=== PATIENT | female | born 1960 | race Caucasian/White ===

== ENCOUNTER → 2019-02-08 10:39 | Outpatient (CLI) | payer OTHER, SELFPAY ==
[2019-01-18 15:11] VITALS: BMI 36.5
--- NOTE | 2019-02-08 10:44 | ECHOD_ITS ---
Reason For Study: CONGESTIVE HEART FAILURE Procedure This was a 2D Doppler, Color Flow transthoracic echocardiogram. The study was technically difficult. Due to body habitus. Exam performed in department. Left Ventricle Normal LV size. Mild segmental systolic dysfunction (see wall motion). The estimated ejection fraction is 40 %. Transmitral doppler flow suggestive of impaired relaxation of left ventricle. Anterio-Basal: Hypokinetic. Infero-Basal: Hypokinetic. Basal inferoseptal: Hypokinetic. Mid- Anterior : Hypokinetic. Mid-Inferior: Hypokinetic. Mid-anteroseptal : Hypokinetic. Anterior [place] : Hypokinetic. Inferior [place] : Hypokinetic. Lateral [place] : Hypokinetic. Right Ventricle Normal RV size. Normal systolic function. Atria The left atrium is mildly enlarged. Normal right atrium. No doppler evidence for ASD. Mitral Valve There is no mitral annular calcification. Normal mitral valve. Mild (1+) mitral valve insufficiency. Tricuspid Valve Normal tricuspid valve. Trivial tricuspid valve insufficiency. Unable to estimate RV systolic pressure/pulmonary artery pressure due to technically difficult study. Aortic Valve Trisinus/trileaflet aortic valve. Mild focal aortic valve calcification. Pulmonic Valve The pulmonic valve is not well visualized. Great Vessels Normal sized aortic root. Pericardium/Pleural No pericardial effusion. MMode/2D Measurements & Calculations LVIDd: 4.9 cm IVSd: 1.00 cm Ao root diam: 2.9 cm LVIDs: 4.2 cm LVPWd: 1.0 cm RVDd: 3.0 cm FS: 14.6 % LAV(MOD-bp): 54.2 ml LA A4 area: 14.8 cm2 LAV(MOD-bp) Indexed: 27.4 ml/m2 LAV(MOD-sp2): 63.1 ml LAV(MOD-sp4): 42.7 ml Time Measurements MV dec time: 0.25 sec Doppler Measurements & Calculations MV E max kirit: 58.0 cm/sec Lat Peak E' Kirit: 5.2 cm/sec Med Peak E' Kirit: 5.0 cm/sec MV A max kirit: 110.9 cm/sec E/E' lat: 11.1 E/E' med: 11.5 MV E/A: 0.52 Ao V2 max: 112.1 cm/sec LV V1 max: 82.8 cm/sec PA V2 max: 81.1 cm/sec Ao max P.0 mmHg LV V1 max P.7 mmHg Interpretation Summary The study was technically difficult. Mild segmental systolic dysfunction (see wall motion). The estimated ejection fraction is 40 %. The left atrium is mildly enlarged. Mild (1+) mitral valve insufficiency. Trivial tricuspid valve insufficiency. Mild focal aortic valve calcification. Unable to estimate RV systolic pressure/pulmonary artery pressure due to technically difficult study. Transmitral doppler flow suggestive of impaired relaxation of left ventricle Ordering Physician: Champ Daniels Referring Physician: OTD Performed By: Suzanne Carmona, KWESI, RVT
== END ==
LOC: CVS 10:44
PROVIDERS: Referring Provider Internal Medicine Cardiovascular Disease; Visit Provider Internal Medicine Cardiovascular Disease
DX: I50.22 Chronic systolic (congestive) heart failure (principal); Z95.5 Presence of coronary angioplasty implant and graft; I25.10 Atherosclerotic heart disease of native coronary artery without angina pectoris; I25.5 Ischemic cardiomyopathy; I38 Endocarditis, valve unspecified
CPT/HCPCS: 93306

== ENCOUNTER → 2023-05-07 | Outpatient (CLI) | payer OTHER, SELFPAY ==
[2023-05-07 18:07] LABS: Absolute Lymphocyte Count 0.68 X10^3/uL (0.83-4.51); Absolute Neutrophil Count 6.2 X10^3/uL (2.0-7.7); Basophil# 0.05 X10^3/uL; Basophil% 0.6 % (0-1); Eosinophil# 0.13 X10^3/uL; Eosinophils% 1.7 % (0-5); Hematocrit 49.3 % (37-47); Hemoglobin 14.3 g/dL (12.0-15.0); Lymphocyte # 0.68 X10^3/ul (0.83-4.51); Lymphocyte % 8.7 % (19-41); Mean Corpuscular Hgb 28.7 pg (27.0-32.0); Monocyte# 0.66 X10^3/uL; Monocyte% 8.5 % (0-10); NRBC Flagged by Analyzer 0 % (0-5); Neutrophil # 6.22 X10^3/uL (2.7-7.7); Platelet Count 149 K/mm3 (150-450); RBC Distribution Width CV 17.9 % (11.6-14.6); Red Blood Count 4.98 M/mm3 (4.2-5.4); White Blood Count 7.8 K/mm3 (4.4-11.0)
[2023-05-07 18:28] LABS: Vitamin D,25 Hydroxy 42.1 ng/mL
[2023-05-07 18:34] LABS: ALB/GLOB Ratio 0.9 RATIO (0.9-2.4); AST(SGOT) 26 U/L (15-37); Alanine Aminotransfer ALT/SGPT 24 U/L (13-56); Albumin, Serum 3.1 g/dL (3.2-5.0); Alkaline Phosphatase 194 U/L (45-117); Anion Gap 5 (5-15); BUN 32 mg/dL (7-18); BUN/Creat Ratio 23.5 RATIO (10-20); Calcium,Total 8.8 mg/dL (8.5-10.1); Chloride 98 mmol/L (98-107); Cholesterol 90 mg/dL (200); Creatinine, Serum 1.36 mg/dL (0.55-1.02); EST Glomerular Filtration Rate 42 mL/min (>60); Est Glom Filt Rate - Afr Amer 51 mL/min (>60); Globulin 3.3 g/dL (2.2-4.2); Glucose 127 mg/dL (74-106); High Density Lipoprotein 33 mg/dL; Potassium 4.2 mmol/L (3.5-5.1); Protein, Total 6.4 g/dL (6.4-8.2); Sodium Level 142 mmol/L (136-145); Thyroid Stim Hormone (TSH) 5.31 uIU/mL (0.358-3.74); Triglycerides 91 mg/dL; Very Low Density Lipoprotein 18 mg/dL (5-40)
[2023-05-07 18:37] LABS: Hemoglobin A1c 6.5 % (3.8-5.6)
== END | disposition home or self-care (01) ==
LOC: MTLAB 16:48
PROVIDERS: PCP Family Medicine; Visit Provider Family Medicine
DX: E11.9 Type 2 diabetes mellitus without complications (principal); R41.0 Disorientation, unspecified
CPT/HCPCS: 36415; 80053; 80061; 82306; 83036; 84443; 85025

== ENCOUNTER → 2023-05-19 | Outpatient (CLI) | payer OTHER, SELFPAY ==
--- NOTE | 2023-05-19 14:33 | US_ITS ---
STUDY: ULTRASOUND BREAST - RIGHT REASON FOR EXAM: Female, 62 years old. Diffuse bilateral skin thickening and orange peel appearance. TECHNIQUE: Axial and longitudinal images of the RIGHT breast were performed with a high resolution ultrasound transducer. # OF IMAGES: 93 COMPARISON: Comparison is made with prior mammogram done earlier in the day. FINDINGS: RIGHT Breast: Skin thickening. Diffuse edematous changes seen in the breast. No solid or cystic mass lesion is seen. IMPRESSION: Diffuse skin thickening and edematous changes within the breast. No focal abnormality is seen. ASSESSMENT CATEGORY: BIRADS Category 2: Benign. A letter regarding these results will be sent to the patient by the facility within 30 days. Electronically Signed: Quique Padilla MD at 8:14 EDT ,
--- NOTE | 2023-05-19 14:34 | BI_ITS ---
MAMMOGRAPHY - BILATERAL DIAGNOSTIC REASON FOR EXAM: Female, 62 years old. Bilateral breast swelling and orange peel appearance. Swelling of the lower extremities. History of CHF. PERTINENT HISTORY: Sister with breast cancer. TECHNIQUE: Digital bilateral breast marcus (3D mammographic acquisition) in the CC and MLO projections. 2-D mediolateral oblique (MLO) and craniocaudad (CC) views of both breasts were obtained. CAD: Full Field Digital Mammography with Computer Added Detection was performed. COMPARISON: Comparison is made with prior outside examination dated April 30, 2018. FINDINGS: Breast Composition: The breasts are heterogeneously dense, which may obscure small masses. There is a 11.2 mm x 12.8 mm irregular nodular density in the deep upper lateral aspect of the left breast. Correlation with ultrasound of both breasts is recommended for further evaluation. There is evidence of diffuse bilateral skin thickening. The amount of fibroglandular tissue as increased as compared to prior study. No other significant abnormalities are identified. BI/DIAG MAMM W/CAD, BILAT IMPRESSION: Diffuse bilateral skin thickening with increased glandular tissue in both breasts with the a 11.2 mm x 12.8 mm irregular nodular density in the deep upper lateral aspect of the left breast. Correlation with ultrasound of both breasts is recommended for further evaluation. ASSESSMENT CATEGORY: BIRADS Category 0: Incomplete. Need additional imaging evaluation. A letter regarding these results will be sent to the patient by the facility within 30 days. Approximately 10% of breast cancers are not detected by mammography. A normal mammogram should not delay biopsy of a clinically suspicious abnormality. Electronically Signed: Quique Padilla MD at 8:12 EDT ,
== END | disposition home or self-care (01) ==
LOC: OPUS 14:30
PROVIDERS: PCP Family Medicine; Referring Provider Family Medicine; Visit Provider Family Medicine
DX: N63.21 Unspecified lump in the left breast, upper outer quadrant (principal); Z80.3 Family history of malignant neoplasm of breast
CPT/HCPCS: 76642; 77062; 77066; G0279

== ENCOUNTER → 2023-06-03 | Outpatient (CLI) | payer OTHER, SELFPAY ==
--- NOTE | 2023-06-03 13:59 | ART_ITS ---
Reason For Study: other symptoms involving the circulatroy system Procedure A bilateral lower extremity continuous wave Doppler with analog waveform analysis and ankle brachial indexes. Left Segmental Pressures Left brachial= 163mmHg. Left posterior tibial artery = 137mmHg. Left dorsalis pedis artery = 130mmHg. Left digit = 166 mmHg. The left dorsalis pedis waveforms are biphasic. The left posterior tibial artery waveforms are biphasic. Right Segmental Pressures Right brachial= 179mmHg. Right posterior tibial artery = 164mmHg. Right dorsalis pedis artery = 143mmHg. Right digit = 155 mmHg. The right dorsalis pedis waveforms are biphasic. The right posterior tibial artery waveforms are biphasic. Indices The right ankle brachial index by the posterior tibial artery is .92. The right ankle brachial index by the dorsalis pedis is .8. The right digital-brachial index is .87. The left ankle brachial index by the posterior tibial artery is .77. The left ankle brachial index by the dorsalis pedis is .73. The left digital-brachial index is .93. VL/Ankle Brachial Index Interpretation Summary Biphasic Doppler waveforms are noted at ankle level bilaterally. Pulse-volume r ecordings appear diminished at ankle and digital level bilaterally. The resting right ankle-brac hial index is minimally diminished. The resting left ankle-brachial index is moderately dimin ished. Digital- brachial indices are normal bilaterally. 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 Art erial flow appears relatively normal at digital level bilaterally. Ordering Physician: Aline Childress Performed By: John Morrow RVT
== END | disposition home or self-care (01) ==
LOC: CVS 13:59
PROVIDERS: PCP Family Medicine; Referring Provider Family Medicine; Visit Provider Family Medicine
DX: R09.89 Other specified symptoms and signs involving the circulatory and respiratory systems (principal)
CPT/HCPCS: 93922

== ENCOUNTER 2023-06-17 12:45 | Outpatient (RCR) | payer OTHER, SELFPAY ==
[2023-06-10 13:26] VITALS: BP 134/71; PULSE 72; RESP 18; TEMP 35.9; O2SAT 93; BMI 45.8
--- NOTE | 2023-06-10 14:38 | PCM.WC.HP ---
History of Present Illness Date of Service: 06/10/23 Chief Complaint: Bilateral lower extremity ulcerations History of Wound: This is a 62-year-old morbidly obese diabetic female who presents with ulcerations in both lower extremities. The patient is morbidly obese with a BMI of 45.8. She suffers from chronic obstructive pulmonary disease and other pre-existing medical problems which limit her mobility. The patient claims to sleep on a relatively flat surface, sleeping each night on the couch. However, she spends most of each day in an idle sitting position. She is not very active. She is on 4 L of oxygen by nasal cannula. She developed blisters in both lower extremities approximately 1 month ago, which subsequently burst, resulting in open ulcerations bilaterally. The patient denies a history of lower extremity thrombophlebitis. 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 right lower leg with fat layer exposed Non-rheumatic mitral regurgitation Nonrheumatic tricuspid valve regurgitation Other and unspecified hyperlipidemia Peripheral arterial occlusive disease Poor circulation Presence of stent in coronary artery (~12/30/16) Swelling of left lower extremity Swelling of right lower extremity Tobacco abuse Tobacco abuse Tobacco abuse counseling Type 2 diabetes mellitus Valvular heart disease Home Medications aspirin 81 mg tablet,delayed release (Adult Low Dose Aspirin) 81 mg PO DAILY 01/18/19 [History Last Taken Unknown] atorvastatin 40 mg tablet 40 mg PO DAILY #90 tabs 04/26/19 [Rx Last Taken Unknown] albuterol sulfate 90 mcg/actuation aerosol inhaler 2 puff inhalation Q4H PRN Wheezing/Shortness of breath #18 grams 11/04/19 [Rx Last Taken Unknown] carvedilol 6.25 mg tablet 6.25 mg PO BID #180 tabs 11/04/19 [Rx Last Taken Unknown] folic acid 1 mg tablet 1 mg PO DAILY #90 tabs 11/04/19 [Rx Last Taken Unknown] nitroglycerin 0.4 mg sublingual tablet 0.4 mg sublingual Q5-15M PRN chest pain #25 tabs 11/04/19 [Rx Last Taken Unknown] aflibercept 2 mg/0.05 mL intravitreal solution for injection (Eylea) 2 mg intravitreal Q4W 09/17/21 [History Last Taken Unknown] albuterol sulfate 2.5 mg/3 mL (0.083 %) solution for nebulization 2.5 mg inhalation Q4H 09/17/21 [History Last Taken Unknown] docusate sodium 100 mg capsule 100 mg PO BID 09/17/21 [History Last Taken Unknown] furosemide 40 mg tablet 40 mg PO DAILY 09/17/21 [History Last Taken Unknown] insulin aspart U-100 100 unit/mL (3 mL) subcutaneous pen (Novolog FlexPen U-100 Insulin aspart) 15 unit subcut TID 09/17/21 [History Last Taken Unknown] metolazone 2.5 mg tablet 2.5 mg PO DAILY 09/17/21 [History Last Taken Unknown] Lactobacillus rhamnosus GG 15 billion cell sprinkle capsule (Culturelle) 1 cap PO DAILY 09/18/21 [History Last Taken Unknown] acetaminophen 325 mg tablet 650 mg PO Q4H 02/11/22 [History Last Taken Unknown] fluticasone fur. 100 mcg-umeclid 62.5 mcg-vilant 25 mcg inhalat.powder (Trelegy Ellipta) 1 inh inhalation DAILY 02/11/22 [History Last Taken Unknown] insulin glargine 100 unit/mL (3 mL) subcutaneous pen (Lantus Solostar U-100 Insulin) 45 unit subcut DAILY 02/11/22 [History Last Taken Unknown] benzonatate 100 mg capsule 100 mg PO TID 05/26/23 [History Last Taken Unknown] bupropion HCl 150 mg tablet,12 hr sustained-release (Wellbutrin SR) 150 mg PO DAILY 05/26/23 [History Last Taken Unknown] fluticasone fur. 100 mcg-umeclid 62.5 mcg-vilant 25 mcg inhalat.powder (Trelegy Ellipta) 1 inh inhalation DAILY 05/26/23 [History Last Taken Unknown] alprazolam 0.25 mg tablet (Xanax) 0.25 mg PO DAILY 06/10/23 [History Last Taken Unknown] Allergy/AdvReac Type Severity Reaction Status Date / Time No Known Allergies Allergy Verified 05/26/23 13:32 Family History Sister Breast cancer Surgical History History of cholecystectomy History of lung biopsy Presence of coronary angioplasty implant and graft (~12/30/16) Social History Smoking Status: Current every day smoker alcohol intake: former substance use type: does not use caffeine: Yes Type: coffee Number of servings: 2 Vital Signs Vital Signs Vital Signs: 06/10/23 13:26 Temperature 96.6 F L Temperature Source Temporal Pulse Rate 72 Respiratory Rate 18 Blood Pressure 134/71 H Blood Pressure Mean 92 Blood Pressure Source Monitor Blood Pressure Position Sitting Blood Pressure Location Left Arm Pulse Ox 93 Oxygen Delivery Method Nasal Cannula Oxygen Flow Rate (L/min) 5 Weight Weight: 259 lb Body Mass Index (BMI) 45.8 Physical Exam Const alert, oriented x3, no apparent distress and well nourished Constitutional Narrative: The patient is morbidly obese. Her BMI is 45.8. A nasal cannula is in place, upon which the patient is dependent. The patient's torso is obese. General Appearance: cooperative, well developed and ill appearing Orientation / Consciousness: awake, oriented to person, oriented to place and oriented to time HEENT normocephalic and head/scalp atraumatic Head and Scalp: normal to inspection, normocephalic and atraumatic External Ear: external ears normal Eyes PERRL and EOMs intact bilaterally General Eye: normal appearance of both eyes Resp normal air movement, no retractions and no use of accessory muscles Resp Narrative: While the patient does not demonstrate respiratory distress, respirations appear to require some extra effort. Effort and Inspection: able to speak in complete sentences Extremity no calf tenderness General Extremity: Negative for clubbing or cyanosis Skin Wound Narrative: Multiple ulcerations are noted in the patient's lower extremities bilaterally. There is an ulceration on the left medial calf. An ulceration is noted on the left posterior calf. An ulceration is noted on the right pretibial surface. There is also an ulceration on the right posterior calf. The ulcerations demonstrate a large amount of bioburden and nonviable tissue, as well as debris and pet hairs. A rather diffuse erythema is noted in the gaiter areas bilaterally, which appears to be inflammatory rather than cellulitic. Mild swelling and edema are noted bilaterally. Neuro oriented x3, CN's II-XII intact bilaterally and moves all extremities Psych Appearance: grossly normal and appropriate Attitude: calm Activity / Motor Behavior: appropriate eye contact Speech: normal speech Mood & Affect: euthymic mood Thought Process: normal thought process Thought Content: normal thought content Attention / Concentration: attention grossly intact Debridement Note Debridement Note Wound debrided: Left medial calf Laterality: Left Type of Debridement: Excisional debridement Anesthesia Used: 5% Lidocaine Gel Depth: Down to and including healthy tissue and in the subcutaneous layer Percentage of wound debrided: 100 Instrument Used: 5mm curette Tissue Removed: Bioburden, necrotic tissue, pet hairs, and debris Severity: Fat Layer Exposed Bleeding Controlled with: Compression and gauze Patient tolerated procedure: Patient tolerated procedure well Debridement Free Text: Debris and pet hairs were noted to be embedded within the ulceration. Post-Debridement Measurements and Additional Note: Post-Debridement Measurements/Treatment - Nurse 1 - General Ulcer Assessment Start: 06/10/23 13:25 Freq: Status: Active Protocol: [email or web address] Activity Type Activity Date Activity User E-sign Co-sign Detail Recorded Client Recorded Date Recorded By Document 06/10/23 13:26 KW [id number] 06/10/23 13:53 KW Edit Result 06/10/23 13:26 KW (1) [id number] 06/10/23 14:01 KW (1) Weight => 259 lb Weight in Pounds => 259.0 lbs Body Mass Index (BMI) => 45.8 BMI Classification => Obese BSA - Omar => 2.16 06/10/23 13:26 - Today's Visit Information Type of service Initial Visit Arrival Mode Wheelchair Accompanied by Patient Identification Verified (Name & Yes ) Patient Requires Transmission-Based Yes Precautions Safety Precautions Fall Prevention Finger Stick Blood Sugar(mg/dl) (if 177 indicated): Blood Sugar Stated by Patient Height and Weight Height 5 ft 3 in Weight 259 lb Weight in Pounds 259.0 lbs Weight Measurement Method Estimated by Patient Body Mass Index (BMI) 45.8 BMI Classification Obese BSA - Omar 2.16 Vital Signs Temperature (97.8 F-99.1 F) 96.6 F L Temperature Source Temporal Pulse Rate (60-100) 72 Pulse Location Monitor Respiratory Rate (12-18) 18 Respiratory rate source Observation Pulse Oximetry 93 Oxygen Delivery Method Nasal Cannula O2 L/MIN 5 Blood Pressure (90/60-120/80) 134/71 H Blood Pressure Mean 92 Source Monitor Position Sitting Blood Pressure Location Left Arm History Since Last Visit- (Skip if this is Patient's initial visit) Left Footwear Regular Shoe Right Footwear Regular Shoe Pain Scale: 0-10 Numeric Is Patient Pain Free? No BLE -Description Burning -Intensity 10 -Radiation Location up legs -Duration (hours) Chronic -Pain Behavior Restlessness -Alleviating Factors/Interventions Medication, Distraction Lower Extremity Assessment/ Foot Assessment/ Toe Nail Assessment Right -Posterior Tibial Palpable No -Posterior Tibial Doppler Multiphasic -Dorsalis Pedis Palpable No -Dorsalis Pedis Doppler Multiphasic -Extremity Color Hemosiderin -Hair Growth on Legs No -Hair Growth on Toes No -Temperature of Extremity Cool -Capillary Refill Greater than 3 Seconds -Dependent Rubor Yes -Blanched when Elevated No -Lipodermatosclerosis No -Other Deformity No -Prior Foot Ulcer No -Charcot Joint No -Prior Amputation No -Thick Yes -Discolored Yes -Deformed Yes -Improper Length & Hygeine No Left -Posterior Tibial Palpable No -Posterior Tibial Doppler Multiphasic -Dorsalis Pedis Palpable No -Dorsalis Pedis Doppler Multiphasic -Extremity Color Hemosiderin -Hair Growth on Legs No -Hair Growth on Toes No -Temperature of Extremity Cool -Capillary Refill Greater than 3 Seconds -Dependent Rubor Yes -Blanched when Elevated No -Lipodermatosclerosis No -Other Deformity No -Prior Foot Ulcer No -Charcot Joint No -Prior Amputation No -Thick Yes -Discolored Yes -Deformed Yes -Improper Length & Hygeine No Communication Assessment Preferred language Cambodian Able to Read Yes Able to Write No Communication Tools None Right Hearing Abillity Normal Left Hearing Abillity Normal Visual Assistive Devices Glasses Teaching Assessment Preferences Verbal,Written Barriers to Learning None Readiness To Learn Excellent Willingness to Engage in Self Management High Activies Readiness to Engage in Self Management High Activities Anxiety Level Calm Cooperation Cooperative Perception Coherent Interest in Health Problem Asks Questions Education Importance Acknowledges Need Does Patient Smoke tobacco or other Yes substances Smoking Status Current every day smoker Is Patient Diabetic Yes Functional Assessment Recent Decline in Ability to Perform Ambulation, Bathing,Lower Body Dressing, Toileting, Transferring Assistive Device With Patient No Culture/Lutheran/Party Plan Sales Unit Advisor Cultural/Lutheran Needs that may affect No Treatment Plan Would you allow our [facility] customer service attendant to No meet you for the purpose of spiritual/ emotional support? Party Plan Sales Unit Advisor to contact place of christian No Teaching: Wound Center Welcome to the W[facility] Cambodian WC - Nurse 1 - General Ulcer Measurement Start: 06/10/23 13:25 Freq: Status: Active Protocol: Activity Type Activity Date Activity User E-sign Co-sign Detail Recorded Client Recorded Date Recorded By Document 06/10/23 13:26 KW [id number] 06/10/23 13:53 KW 06/10/23 13:26 Wound Center Nurse 1 #6 L Lat LE -Current Size (cm) - Length 2.7 -Current Size (cm) - Width 2.8 -Current Size (cm) - Depth 0.1 -Total Square Cm 7.56 -Photo Taken Yes -Exudate Amt Medium -Exudate Type Serosanguineous -Wound Margin Distinct, Outline Attached -Granulation Amt None Present (0 %) -Necrosis Amt Large (67-100%) -Necrotic Tissue Type Adherent Slough -Structure Exposed N/A -Texture (Tara-wound Skin Appearance) Scarring -Moisture (Tara-wound Skin Appearance) No Abnormality -Color (Tara-wound Skin Appearance) Erythema, Hemosiderin Staining -Temperature (Tara-wound Skin No Abnormality Appearance) (Pt Warm) -Tenderness on Palpation (Tara-wound No Skin Appearance) -Ulcer Cleansing Soap and Water -Anesthetic Used 5% Lidocaine Gel #5 L Med -Current Size (cm) - Length 1.1 -Current Size (cm) - Width 2.5 -Current Size (cm) - Depth 0.1 -Total Square Cm 2.75 -Photo Taken Yes -Exudate Amt Medium -Exudate Type Serosanguineous -Wound Margin Distinct, Outline Attached -Granulation Amt Small (1-33%) -Granulation Quality [place] -Necrosis Amt Small (1-33%) -Necrotic Tissue Type Adherent Slough -Structure Exposed N/A -Texture (Tara-wound Skin Appearance) Localized Edema ,Scarring -Moisture (Tara-wound Skin Appearance) No Abnormality -Color (Tara-wound Skin Appearance) Erythema, Hemosiderin Staining -Temperature (Tara-wound Skin No Abnormality Appearance) (Pt Warm) -Tenderness on Palpation (Tara-wound No Skin Appearance) -Ulcer Cleansing Soap and Water -Foul Odor after Cleansing No -Anesthetic Used 5% Lidocaine Gel #4 L Post LE -Current Size (cm) - Length 1.3 -Current Size (cm) - Width 2.4 -Current Size (cm) - Depth 0.1 -Total Square Cm 3.12 -Photo Taken Yes -Classification - Thickness Unclassifiable (Eschar Covered ) -Exudate Amt Medium -Exudate Type Serosanguineous -Wound Margin Thickened -Granulation Amt None Present (0 %) -Necrosis Amt Large (67-100%) -Necrotic Tissue Type Adherent Slough -Structure Exposed N/A -Texture (Tara-wound Skin Appearance) Scarring -Moisture (Tara-wound Skin Appearance) No Abnormality -Color (Tara-wound Skin Appearance) Erythema, Hemosiderin Staining -Temperature (Tara-wound Skin No Abnormality Appearance) (Pt Warm) -Tenderness on Palpation (Tara-wound No Skin Appearance) -Ulcer Cleansing Soap and Water -Foul Odor after Cleansing No -Anesthetic Used 5% Lidocaine Gel #3 R Post Lower -Current Size (cm) - Length 3 -Current Size (cm) - Width 0.5 -Current Size (cm) - Depth 0.1 -Total Square Cm 1.5 -Photo Taken Yes -Exudate Amt Small -Exudate Type Serosanguineous -Wound Margin Indistinct, Non -Visible -Granulation Amt None Present (0 %) -Necrosis Amt Small (1-33%) -Necrotic Tissue Type Eschar -Structure Exposed N/A -Texture (Tara-wound Skin Appearance) Scarring -Moisture (Tara-wound Skin Appearance) No Abnormality -Color (Tara-wound Skin Appearance) Erythema, Hemosiderin Staining -Temperature (Tara-wound Skin No Abnormality Appearance) (Pt Warm) -Tenderness on Palpation (Tara-wound No Skin Appearance) -Ulcer Cleansing Soap and Water -Foul Odor after Cleansing No -Anesthetic Used 5% Lidocaine Gel #2 R Calf -Current Size (cm) - Length 1 -Current Size (cm) - Width 1.6 -Current Size (cm) - Depth 0.1 -Total Square Cm 1.6 -Photo Taken Yes -Classification - Thickness Unclassifiable (Eschar Covered ) -Exudate Amt Small -Exudate Type Serosanguineous -Wound Margin Thickened -Granulation Amt None Present (0 %) -Necrosis Amt Large (67-100%) -Necrotic Tissue Type Eschar -Texture (Tara-wound Skin Appearance) Localized Edema ,Scarring -Moisture (Tara-wound Skin Appearance) No Abnormality -Color (Tara-wound Skin Appearance) Erythema, Hemosiderin Staining -Temperature (Tara-wound Skin No Abnormality Appearance) (Pt Warm) -Tenderness on Palpation (Tara-wound No Skin Appearance) -Ulcer Cleansing Soap and Water -Foul Odor after Cleansing No -Anesthetic Used 5% Lidocaine Gel #1 RLE -Current Size (cm) - Length 8.5 -Current Size (cm) - Width 4.7 -Current Size (cm) - Depth 0.1 -Total Square Cm 39.95 -Photo Taken Yes -Exudate Amt Medium -Exudate Type Serosanguineous -Wound Margin Distinct, Outline Attached -Granulation Amt Medium (34-66%) -Granulation Quality Red -Necrosis Amt Medium (34-66%) -Necrotic Tissue Type Adherent Slough -Structure Exposed N/A -Texture (Tara-wound Skin Appearance) Localized Edema ,Scarring -Color (Tara-wound Skin Appearance) Erythema, Hemosiderin Staining -Temperature (Tara-wound Skin No Abnormality Appearance) (Pt Warm) -Tenderness on Palpation (Tara-wound No Skin Appearance) -Ulcer Cleansing Soap and Water -Foul Odor after Cleansing No -Anesthetic Used 5% Lidocaine Gel Right Calf (cm) 42.2 Right Ankle (cm) 24.2 Left Calf (cm) 41 Left Ankle (cm) 24.3 Additional Wound Wound debrided: Left posterior calf Laterality: Left Type of Debridement: Excisional debridement Anesthesia Used: 5% Lidocaine Gel Depth: Down to and including healthy tissue and in the subcutaneous layer Percentage of wound debrided: 100 Instrument Used: 5mm curette Tissue Removed: Bioburden, necrotic tissue, and pet hairs Severity: Fat Layer Exposed Amount of bleeding with debridement: Mild Bleeding Controlled with: Compression and gauze Patient tolerated procedure: Patient tolerated procedure well Additional Wound Wound debrided: Right pretibial surface Laterality: Right Type of Debridement: Excisional debridement Anesthesia Used: 5% Lidocaine Gel Depth: Down to and including healthy tissue and in the subcutaneous layer Percentage of wound debrided: 100 Instrument Used: 5mm curette Tissue Removed: Bioburden, necrotic tissue, pet hairs, and debris Severity: Fat Layer Exposed Bleeding Controlled with: Compression and gauze Patient tolerated procedure: Patient tolerated procedure well Additional Wound Wound debrided: Right posterior calf Laterality: Right Type of Debridement: Excisional debridement Anesthesia Used: 5% Lidocaine Gel Depth: Down to and including healthy tissue and in the subcutaneous layer Percentage of wound debrided: 100 Instrument Used: 5mm curette Tissue Removed: Bioburden, necrotic tissue, pet hairs, and debris Severity: Fat Layer Exposed Amount of bleeding with debridement: Mild Bleeding Controlled with: Compression and gauze Patient tolerated procedure: Patient tolerated procedure well Assessment/Plan Assessment/Plan (1) Non-pressure chronic ulcer of right lower leg with fat layer exposed: CODE(S): L97.912 - Non-pressure chronic ulcer of unspecified part of right lower leg with fat layer exposed (2) Non-pressure chronic ulcer of left lower leg with fat layer exposed: CODE(S): L97.922 - Non-pressure chronic ulcer of unspecified part of left lower leg with fat layer exposed (3) Edema of right lower leg: CODE(S): R60.0 - Localized edema (4) Edema of left lower extremity: CODE(S): R60.0 - Localized edema (5) Dependent edema: CODE(S): R60.9 - Edema, unspecified (6) Swelling of right lower extremity: CODE(S): M79.89 - Other specified soft tissue disorders (7) Swelling of left lower extremity: CODE(S): M79.89 - Other specified soft tissue disorders (8) Peripheral arterial occlusive disease: CODE(S): I77.9 - Disorder of arteries and arterioles, unspecified (9) Valvular heart disease: CODE(S): I38 - Endocarditis, valve unspecified (10) Presence of stent in coronary artery: CODE(S): Z95.5 - Presence of coronary angioplasty implant and graft (11) Bilateral carotid bruits: CODE(S): R09.89 - Other specified symptoms and signs involving the circulatory and respiratory systems (12) Nonrheumatic tricuspid valve regurgitation: CODE(S): I36.1 - Nonrheumatic tricuspid (valve) insufficiency (13) Non-rheumatic mitral regurgitation: CODE(S): I34.0 - Nonrheumatic mitral (valve) insufficiency (14) Depression: CODE(S): F32.9 - Major depressive disorder, single episode, unspecified (15) Type 2 diabetes mellitus: CODE(S): E11.9 - Type 2 diabetes mellitus without complications (16) Atherosclerotic heart disease of [place] coronary artery without angina pectoris: CODE(S): I25.10 - Atherosclerotic heart disease of [place] coronary artery without angina pectoris QUALIFIERS: [place] vs. transplanted heart: [place] heart Qualified Code(s): I25.10 - Atherosclerotic heart disease of [place] coronary artery without angina pectoris (17) Chronic systolic (congestive) heart failure: CODE(S): I50.22 - Chronic systolic (congestive) heart failure (18) Essential hypertension: CODE(S): I10 - Essential (primary) hypertension (19) Hyperlipidemia: CODE(S): E78.5 - Hyperlipidemia, unspecified (20) Morbid obesity: CODE(S): E66.01 - Morbid (severe) obesity due to excess calories (21) Poor circulation: CODE(S): R09.89 - Other specified symptoms and signs involving the circulatory and respiratory systems (22) Hypothyroidism: CODE(S): E03.9 - Hypothyroidism, unspecified (23) History of lung biopsy: CODE(S): Z98.890 - Other specified postprocedural states (24) COPD (chronic obstructive pulmonary disease): CODE(S): J44.9 - Chronic obstructive pulmonary disease, unspecified (25) Tobacco abuse: CODE(S): Z72.0 - Tobacco use (26) Tobacco abuse counseling: CODE(S): Z71.6 - Tobacco abuse counseling PLAN: Plan This is a 62-year-old morbidly obese diabetic female who presents with ulcerations in her lower extremities bilaterally. These have been present for at least 1 month, if not longer. These appear to be related to chronic swelling and edema in the patient's lower extremities, related to chronic dependency, inactivity, and morbid obesity. The patient is limited in her activity due to her morbid obesity and cardiopulmonary disease. As result, she sits for long periods each day with her legs in a dependent position. She denies a history of lower extremity thrombophlebitis. Her ulcerations began as blisters, which subsequently ruptured and resulting in open ulcerations. The ulcerations have been debrided today. We are to implement the use of Promogran topically, which will be applied to each of the patient's lower extremity ulcerations. Compression is to be implemented by means of a 3M 2 layer compression wrap, which will be changed with the Promogran atop each ulceration twice weekly. The patient has been encouraged to elevate her lower extremities is much as possible. Elevation is to be to heart level. This is to be accomplished during both sleeping and waking hours. Prolonged idle sitting has been discouraged. Weight loss has been recommended. Adequate nutrition has been advised. Optimization of the patient's glycemic control has also been recommended. The patient has recently undergone a noninvasive lower extremity arterial study on June 03, 2023, which revealed evidence of minimal arterial occlusive disease at ankle level on the right. 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 Arterial flow appears to be relatively normal at digital level bilaterally. The patient has recently also undergone recent laboratory studies on May 07, 2023, with results as follows: White blood count 7.8, hemoglobin 14.3, hematocrit 49.3, platelets 149,000, potassium 4.2, sodium 142, chloride 98, BUN 32, creatinine 1.36, glucose 127, calcium 8.8, total bilirubin 1.40, AST 26, ALT 24, alkaline phosphatase 194, triglycerides 91, cholesterol 90, LDL 39, VLDL 18, total protein 6.4, albumin 3.1. TSH was 5.31 the patient is to return in 1 week for reevaluation. Total time: 62 minutes
[2023-06-13 12:21] VITALS: BP 136/56; PULSE 57; RESP 18; TEMP 36.2; O2SAT 91; BMI 45.8
[2023-06-17 12:50] VITALS: BP 146/88; PULSE 85; RESP 24; TEMP 36; BMI 45.8
--- NOTE | 2023-06-17 13:46 | HP.PCM_ITS ---
History of Present Illness Date of Service: 06/17/23 Chief Complaint: Bilateral lower extremity ulcerations History of Wound: This is a 62-year-old morbidly obese diabetic female who presented with ulcerations in both lower extremities. The patient is morbidly obese with a BMI of 45.8. She suffers from chronic obstructive pulmonary disease and other pre-existing medical problems which limit her mobility. The patient claims to sleep on a relatively flat surface, sleeping each night on the couch. However, she spends most of each day in an idle sitting position. She is not very active. She is on 4 L of oxygen by nasal cannula. She developed blisters in both lower extremities approximately 1 month ago, which subsequently burst, resulting in open ulcerations bilaterally. The patient denies a history of lower extremity thrombophlebitis. [facility] Medical History Anxiety Atherosclerotic heart disease of [place] coronary artery without angina pectoris Bilateral carotid bruits Chronic systolic (congestive) heart failure COPD (chronic obstructive pulmonary disease) Dependent edema Depression Diabetic polyneuropathy associated with type 2 diabetes mellitus Edema of left lower extremity Edema of right lower leg Essential hypertension Hyperlipidemia Hypothyroidism Morbid obesity Non-pressure chronic ulcer of left lower leg with fat layer exposed Non-pressure chronic ulcer of right lower leg with fat layer exposed Non-rheumatic mitral regurgitation Nonrheumatic tricuspid valve regurgitation Other and unspecified hyperlipidemia Peripheral arterial occlusive disease Poor circulation Presence of stent in coronary artery (~12/30/16) Swelling of left lower extremity Swelling of right lower extremity Tobacco abuse Tobacco abuse Tobacco abuse counseling Type 2 diabetes mellitus Valvular heart disease Home Medications aspirin 81 mg tablet,delayed release (Adult Low Dose Aspirin) 81 mg PO DAILY 01/18/19 [History Last Taken Unknown] atorvastatin 40 mg tablet 40 mg PO DAILY #90 tabs 04/26/19 [Rx Last Taken Unknown] albuterol sulfate 90 mcg/actuation aerosol inhaler 2 puff inhalation Q4H PRN Wheezing/Shortness of breath #18 grams 11/04/19 [Rx Last Taken Unknown] carvedilol 6.25 mg tablet 6.25 mg PO BID #180 tabs 11/04/19 [Rx Last Taken Unknown] folic acid 1 mg tablet 1 mg PO DAILY #90 tabs 11/04/19 [Rx Last Taken Unknown] nitroglycerin 0.4 mg sublingual tablet 0.4 mg sublingual Q5-15M PRN chest pain #25 tabs 11/04/19 [Rx Last Taken Unknown] aflibercept 2 mg/0.05 mL intravitreal solution for injection (Eylea) 2 mg intravitreal Q4W 09/17/21 [History Last Taken Unknown] albuterol sulfate 2.5 mg/3 mL (0.083 %) solution for nebulization 2.5 mg inhalation Q4H 09/17/21 [History Last Taken Unknown] docusate sodium 100 mg capsule 100 mg PO BID 09/17/21 [History Last Taken Unknown] furosemide 40 mg tablet 40 mg PO DAILY 09/17/21 [History Last Taken Unknown] insulin aspart U-100 100 unit/mL (3 mL) subcutaneous pen (Novolog FlexPen U-100 Insulin aspart) 15 unit subcut TID 09/17/21 [History Last Taken Unknown] metolazone 2.5 mg tablet 2.5 mg PO DAILY 09/17/21 [History Last Taken Unknown] Lactobacillus rhamnosus GG 15 billion cell sprinkle capsule (Culturelle) 1 cap PO DAILY 09/18/21 [History Last Taken Unknown] acetaminophen 325 mg tablet 650 mg PO Q4H 02/11/22 [History Last Taken Unknown] fluticasone fur. 100 mcg-umeclid 62.5 mcg-vilant 25 mcg inhalat.powder (Trelegy Ellipta) 1 inh inhalation DAILY 02/11/22 [History Last Taken Unknown] insulin glargine 100 unit/mL (3 mL) subcutaneous pen (Lantus Solostar U-100 Insulin) 45 unit subcut DAILY 02/11/22 [History Last Taken Unknown] benzonatate 100 mg capsule 100 mg PO TID 05/26/23 [History Last Taken Unknown] bupropion HCl 150 mg tablet,12 hr sustained-release (Wellbutrin SR) 150 mg PO DAILY 05/26/23 [History Last Taken Unknown] fluticasone fur. 100 mcg-umeclid 62.5 mcg-vilant 25 mcg inhalat.powder (Trelegy Ellipta) 1 inh inhalation DAILY 05/26/23 [History Last Taken Unknown] alprazolam 0.25 mg tablet (Xanax) 0.25 mg PO DAILY 06/10/23 [History Last Taken Unknown] Allergy/AdvReac Type Severity Reaction Status Date / Time No Known Allergies Allergy Verified 05/26/23 13:32 Family History Sister Breast cancer Surgical History History of cholecystectomy History of lung biopsy Presence of coronary angioplasty implant and graft (~12/30/16) Social History Smoking Status: Current every day smoker alcohol intake: former substance use type: does not use caffeine: Yes Type: coffee Number of servings: 2 Vital Signs Vital Signs Vital Signs: 06/17/23 12:50 Temperature 96.8 F L Temperature Source Temporal Pulse Rate 85 Respiratory Rate 24 H Blood Pressure 146/88 H Blood Pressure Mean 107 Blood Pressure Source Monitor Weight Weight: 259 lb Body Mass Index (BMI) 45.8 Physical Exam Const alert, oriented x3, no apparent distress and well nourished Constitutional Narrative: The patient is morbidly obese. Her BMI is 45.8. A nasal cannula is in place, upon which the patient is dependent. The patient's torso is obese. General Appearance: cooperative, well developed and ill appearing Orientation / Consciousness: awake, oriented to person, oriented to place and oriented to time HEENT normocephalic and head/scalp atraumatic Head and Scalp: normal to inspection, normocephalic and atraumatic External Ear: external ears normal Eyes PERRL and EOMs intact bilaterally General Eye: normal appearance of both eyes Resp normal air movement, no retractions and no use of accessory muscles Resp Narrative: While the patient does not demonstrate respiratory distress, respirations appear to require some extra effort. Effort and Inspection: able to speak in complete sentences Extremity no calf tenderness General Extremity: Negative for clubbing or cyanosis Skin Wound Narrative: Multiple ulcerations are noted in the patient's lower extremities bilaterally. There is an ulceration on the left medial calf. An ulceration is noted on the left lateral calf, in the supra-malleolar area. An ulceration is noted on the right pretibial surface. There is also an ulceration on the right posterior calf. The ulcerations demonstrate a moderate amount of bioburden and nonviable tissue, with slight improvement since last week. Mild erythema is noted in the gaiter areas bilaterally, which appears to be inflammatory rather than cellulitic. The swelling and edema are much improved. Neuro oriented x3, CN's II-XII intact bilaterally and moves all extremities Sensorium / Orientation: awake, alert, oriented to person, oriented to place and oriented to time Psych Appearance: grossly normal and appropriate Attitude: calm Activity / Motor Behavior: appropriate eye contact Speech: normal speech Mood & Affect: euthymic mood Thought Process: normal thought process Thought Content: normal thought content Attention / Concentration: attention grossly intact Debridement Note Debridement Note Wound debrided: Left medial calf Laterality: Left Type of Debridement: Excisional debridement Anesthesia Used: 5% Lidocaine Gel Depth: Down to and including healthy tissue and in the subcutaneous layer Percentage of wound debrided: 100 Instrument Used: 5mm curette Tissue Removed: Bioburden, necrotic tissue, pet hairs, and debris Severity: Fat Layer Exposed Bleeding Controlled with: Compression and gauze Patient tolerated procedure: Patient tolerated procedure well Post-Debridement Measurements and Additional Note: Post-Debridement Measurements/Treatment WC - Nurse 1 - General Ulcer Assessment Start: 06/10/23 13:25 Freq: Status: Active Protocol: CELESTE Activity Type Activity Date Activity User E-sign Co-sign Detail Recorded Client Recorded Date Recorded By Document 06/10/23 13:26 KW [id number] 06/10/23 13:53 KW Edit Result 06/10/23 13:26 KW (1) [id number] 06/10/23 14:01 KW Document 06/13/23 12:21 KW [id number] 06/13/23 13:13 KW Document 06/17/23 12:50 DL [id number] 06/17/23 13:07 DL (1) Weight => 259 lb Weight in Pounds => 259.0 lbs Body Mass Index (BMI) => 45.8 BMI Classification => Obese BSA - Omar => 2.16 06/10/23 06/13/23 06/17/23 13:26 12:21 12:50 - Today's Visit Information Type of service Initial Visit Nurse-only Follow-up Visit Visit (Physician/ENGINEER ASSISTANT ) Arrival Mode Wheelchair Wheelchair Wheelchair Transfer Assistance Manual Transfer Assist (Other) x2 Accompanied by Patient Identification Verified (Name & Yes Yes Yes ) Patient Requires Transmission-Based Yes Yes No Precautions Safety Precautions Fall Prevention Fall Prevention Finger Stick Blood Sugar(mg/dl) (if 177 97 indicated): Blood Sugar Stated by Stated by Patient Patient Height and Weight Height 5 ft 3 in Weight 259 lb Weight in Pounds 259.0 lbs Weight Measurement Method Estimated by Patient Body Mass Index (BMI) 45.8 45.8 45.8 BMI Classification Obese Obese Obese BSA - Omar 2.16 Vital Signs Temperature (97.8 F-99.1 F) 96.6 F L 97.2 F L 96.8 F L Temperature Source Temporal Temporal Temporal Pulse Rate (60-100) 72 57 L 85 Pulse Location Monitor Monitor Monitor Respiratory Rate (12-18) 18 18 24 H Respiratory rate source Observation Observation Observation Pulse Oximetry 93 91 Oxygen Delivery Method Nasal Cannula Nasal Cannula O2 L/MIN 5 4 Blood Pressure (90/60-120/80) 134/71 H 136/56 H 146/88 H Blood Pressure Mean 92 82 107 Source Monitor Monitor Monitor Position Sitting Sitting Blood Pressure Location Left Arm Left Arm History Since Last Visit- (Skip if this is Patient's initial visit) Have you changed medications since your No No last visit? Any new allergies or adverse reactions No No Had a fall/change in ADL's that may No No increase risk of falls Signs or symptoms of abuse and/or No No neglect since last visit Have you been in the hospital since your No No last visit? Has dressing in place as prescribed Yes Yes Has compression in place as prescribed Yes Yes Has offloadiing in place as prescribed No Yes Experienced any changes in pain level or No No management Left Footwear Regular Shoe Regular Shoe Right Footwear Regular Shoe Regular Shoe Pain Scale: 0-10 Numeric Is Patient Pain Free? No Yes Yes BLE -Description Burning -Intensity 10 -Radiation Location up legs -Duration (hours) Chronic -Pain Behavior Restlessness -Alleviating Factors/Interventions Medication, Distraction Lower Extremity Assessment/ Foot Assessment/ Toe Nail Assessment Right -Posterior Tibial Palpable No -Posterior Tibial Doppler Multiphasic -Dorsalis Pedis Palpable No -Dorsalis Pedis Doppler Multiphasic -Extremity Color Hemosiderin -Hair Growth on Legs No -Hair Growth on Toes No -Temperature of Extremity Cool -Capillary Refill Greater than 3 Seconds -Dependent Rubor Yes -Blanched when Elevated No -Lipodermatosclerosis No -Other Deformity No -Prior Foot Ulcer No -Charcot Joint No -Prior Amputation No -Thick Yes -Discolored Yes -Deformed Yes -Improper Length & Hygeine No Left -Posterior Tibial Palpable No -Posterior Tibial Doppler Multiphasic -Dorsalis Pedis Palpable No -Dorsalis Pedis Doppler Multiphasic -Extremity Color Hemosiderin -Hair Growth on Legs No -Hair Growth on Toes No -Temperature of Extremity Cool -Capillary Refill Greater than 3 Seconds -Dependent Rubor Yes -Blanched when Elevated No -Lipodermatosclerosis No -Other Deformity No -Prior Foot Ulcer No -Charcot Joint No -Prior Amputation No -Thick Yes -Discolored Yes -Deformed Yes -Improper Length & Hygeine No Communication Assessment Preferred language Jordanian Able to Read Yes Able to Write No Communication Tools None Right Hearing Abillity Normal Left Hearing Abillity Normal Visual Assistive Devices Glasses Teaching Assessment Preferences Verbal,Written Barriers to Learning None Readiness To Learn Excellent Willingness to Engage in Self Management High Activies Readiness to Engage in Self Management High Activities Anxiety Level Calm Cooperation Cooperative Perception Coherent Interest in Health Problem Asks Questions Education Importance Acknowledges Need Does Patient Smoke tobacco or other Yes substances Smoking Status Current every day smoker Is Patient Diabetic Yes Functional Assessment Recent Decline in Ability to Perform Ambulation, Bathing,Lower Body Dressing, Toileting, Transferring Assistive Device With Patient No Culture/Orthodox/Software Database Architect Cultural/Orthodox Needs that may affect No Treatment Plan Would you allow our hospital claim rep to No meet you for the purpose of spiritual/ emotional support? Software Database Architect to contact place of buddhist No Teaching: Wound Center Welcome to the [facility] - Nurse 1 - General Ulcer Measurement Start: 06/10/23 13:25 Freq: Status: Active Protocol: Activity Type Activity Date Activity User E-sign Co-sign Detail Recorded Client Recorded Date Recorded By Document 06/10/23 13:26 KW [id number] 06/10/23 13:53 KW Document 06/13/23 12:21 KW [id number] 06/13/23 13:13 KW Document 06/17/23 12:50 DL [id number] 06/17/23 13:07 DL 06/10/23 06/13/23 06/17/23 13:26 12:21 12:50 Wound Center Nurse 1 #6 L Lat LE -Current Size (cm) - Length 2.7 8 3.2 -Current Size (cm) - Width 2.8 5 3.2 -Current Size (cm) - Depth 0.1 1 0.2 -Total Square Cm 7.56 40 10.24 -Photo Taken Yes No -Tunneling No -Undermining/Tunneling No -Circular Undermining No -Exudate Amt Medium Large Medium -Exudate Type Serosanguineous Yellow/Green Serosanguineous -Wound Margin Distinct, Distinct, Distinct, Outline Outline Outline Attached Attached Attached -Granulation Amt None Present (0 Large (67-100%) None Present (0 %) %) -Granulation Quality Red -Necrosis Amt Large (67-100%) Small (1-33%) Large (67-100%) -Necrotic Tissue Type Adherent Slough Adherent Slough Adherent Slough -Structure Exposed N/A N/A -Texture (Tara-wound Skin Appearance) Scarring Assessed Scarring -Moisture (Tara-wound Skin Appearance) No Abnormality Assessed No Abnormality -Color (Tara-wound Skin Appearance) Erythema, Assessed Hemosiderin Hemosiderin Staining Staining -Temperature (Tara-wound Skin No Abnormality No Abnormality No Abnormality Appearance) (Pt Warm) (Pt Warm) (Pt Warm) -Tenderness on Palpation (Tara-wound No No Skin Appearance) -Ulcer Cleansing Soap and Water Soap and Water -Foul Odor after Cleansing No No -Anesthetic Used 5% Lidocaine 5% Lidocaine Gel Gel #5 L Med -Current Size (cm) - Length 1.1 1.6 1.4 -Current Size (cm) - Width 2.5 2.7 2.7 -Current Size (cm) - Depth 0.1 1 0.2 -Total Square Cm 2.75 4.32 3.78 -Photo Taken Yes No -Exudate Amt Medium Small -Exudate Type Serosanguineous Yellow/Green -Wound Margin Distinct, Distinct, Distinct, Outline Outline Outline Attached Attached Attached -Granulation Amt Small (1-33%) Small (1-33%) None Present (0 %) -Granulation Quality [place] Red -Necrosis Amt Small (1-33%) Medium (34-66%) Large (67-100%) -Necrotic Tissue Type Adherent Slough Adherent Slough Adherent Slough -Structure Exposed N/A N/A -Texture (Tara-wound Skin Appearance) Localized Edema Assessed Scarring ,Scarring -Moisture (Tara-wound Skin Appearance) No Abnormality Assessed No Abnormality -Color (Tara-wound Skin Appearance) Erythema, Assessed Hemosiderin Hemosiderin Staining, Staining Mottled -Temperature (Tara-wound Skin No Abnormality No Abnormality No Abnormality Appearance) (Pt Warm) (Pt Warm) (Pt Warm) -Tenderness on Palpation (Tara-wound No No Skin Appearance) -Ulcer Cleansing Soap and Water Soap and Water Soap and Water -Foul Odor after Cleansing No No No -Anesthetic Used 5% Lidocaine 5% Lidocaine Gel Gel #4 L Post LE -Current Size (cm) - Length 1.3 2.2 0.8 -Current Size (cm) - Width 2.4 3 1.8 -Current Size (cm) - Depth 0.1 0.1 0.2 -Total Square Cm 3.12 6.6 1.44 -Photo Taken Yes -Classification - Thickness Unclassifiable (Eschar Covered ) -Exudate Amt Medium Medium Small -Exudate Type Serosanguineous Yellow/Green Serosanguineous -Wound Margin Thickened Distinct, Distinct, Outline Outline Attached Attached -Granulation Amt None Present (0 Small (1-33%) None Present (0 %) %) -Granulation Quality Red -Necrosis Amt Large (67-100%) Medium (34-66%) Large (67-100%) -Necrotic Tissue Type Adherent Slough Adherent Slough Adherent Slough -Structure Exposed N/A N/A -Texture (Tara-wound Skin Appearance) Scarring Assessed Scarring -Moisture (Tara-wound Skin Appearance) No Abnormality Assessed No Abnormality -Color (Tara-wound Skin Appearance) Erythema, Assessed Hemosiderin Hemosiderin Staining, Staining Mottled -Temperature (Tara-wound Skin No Abnormality No Abnormality Appearance) (Pt Warm) (Pt Warm) -Tenderness on Palpation (Tara-wound No No Skin Appearance) -Ulcer Cleansing Soap and Water Soap and Water -Foul Odor after Cleansing No No -Anesthetic Used 5% Lidocaine 5% Lidocaine Gel Gel #3 R Post Lower -Current Size (cm) - Length 3 1.8 -Current Size (cm) - Width 0.5 1.8 -Current Size (cm) - Depth 0.1 0.1 -Total Square Cm 1.5 3.24 -Photo Taken Yes -Exudate Amt Small Small -Exudate Type Serosanguineous Serosanguineous -Wound Margin Indistinct, Non Distinct, -Visible Outline Attached -Granulation Amt None Present (0 None Present (0 %) %) -Necrosis Amt Small (1-33%) Large (67-100%) -Necrotic Tissue Type Eschar Adherent Slough -Structure Exposed N/A N/A -Texture (Tara-wound Skin Appearance) Scarring Scarring -Moisture (Tara-wound Skin Appearance) No Abnormality No Abnormality -Color (Tara-wound Skin Appearance) Erythema, Hemosiderin Hemosiderin Staining, Staining Mottled -Temperature (Tara-wound Skin No Abnormality No Abnormality Appearance) (Pt Warm) (Pt Warm) -Tenderness on Palpation (Tara-wound No No Skin Appearance) -Ulcer Cleansing Soap and Water Soap and Water -Foul Odor after Cleansing No No -Anesthetic Used 5% Lidocaine 5% Lidocaine Gel Gel #2 R Calf -Current Size (cm) - Length 1 4.2 -Current Size (cm) - Width 1.6 3.8 -Current Size (cm) - Depth 0.1 0.1 -Total Square Cm 1.6 15.96 -Photo Taken Yes No -Classification - Thickness Unclassifiable (Eschar Covered ) -Exudate Amt Small Small -Exudate Type Serosanguineous Serosanguineous -Wound Margin Thickened Distinct, Outline Attached -Granulation Amt None Present (0 Large (67-100%) %) -Granulation Quality [place] -Slough/Fibrin Yes -Necrosis Amt Large (67-100%) Large (67-100%) -Necrotic Tissue Type Eschar Adherent Slough -Structure Exposed N/A -Texture (Tara-wound Skin Appearance) Localized Edema Localized Edema ,Scarring ,Scarring -Moisture (Tara-wound Skin Appearance) No Abnormality No Abnormality -Color (Tara-wound Skin Appearance) Erythema, Hemosiderin Hemosiderin Staining, Staining Mottled -Temperature (Tara-wound Skin No Abnormality No Abnormality Appearance) (Pt Warm) (Pt Warm) -Tenderness on Palpation (Tara-wound No No Skin Appearance) -Ulcer Cleansing Soap and Water Soap and Water -Foul Odor after Cleansing No -Anesthetic Used 5% Lidocaine 5% Lidocaine Gel Gel #1 RLE -Current Size (cm) - Length 8.5 7.2 -Current Size (cm) - Width 4.7 4.8 -Current Size (cm) - Depth 0.1 0.2 -Total Square Cm 39.95 34.56 -Photo Taken Yes -Exudate Amt Medium Medium -Exudate Type Serosanguineous Serosanguineous -Wound Margin Distinct, Distinct, Outline Outline Attached Attached -Granulation Amt Medium (34-66%) Small (1-33%) -Granulation Quality Red [place] -Necrosis Amt Medium (34-66%) Large (67-100%) -Necrotic Tissue Type Adherent Slough Adherent Slough -Structure Exposed N/A N/A -Texture (Tara-wound Skin Appearance) Localized Edema Scarring ,Scarring -Moisture (Tara-wound Skin Appearance) No Abnormality -Color (Tara-wound Skin Appearance) Erythema, Hemosiderin Hemosiderin Staining, Staining Mottled -Temperature (Tara-wound Skin No Abnormality No Abnormality Appearance) (Pt Warm) (Pt Warm) -Tenderness on Palpation (Tara-wound No No Skin Appearance) -Ulcer Cleansing Soap and Water Soap and Water -Foul Odor after Cleansing No No -Anesthetic Used 5% Lidocaine 5% Lidocaine Gel Gel Right Calf (cm) 42.2 40 37.3 Right Ankle (cm) 24.2 23.5 22 Left Calf (cm) 41 37.6 38.3 Left Ankle (cm) 24.3 23 20.4 WC - Nurse 2 - General Ulcer CM Notes Start: 06/10/23 13:25 Freq: Status: Active Protocol: Activity Type Activity Date Activity User E-sign Co-sign Detail Recorded Client Recorded Date Recorded By Document 06/10/23 15:45 PL [id number] 06/10/23 15:50 PL Document 06/13/23 12:21 KW [id number] 06/13/23 13:13 KW 06/10/23 06/13/23 15:45 12:21 Wound Center Nurse 2 #6 L Lat LE -Time 14:16 -Correct Patient Yes -Correct Side, Site, Position Yes -Correct Procedure Yes -Procedure Performed Yes -Type of Procedure Debridement -Clinical Debridement Subcutaneous -Tissue Removed Subcutaneous -Post Debridement (cm) - Length 2.7 -Post Debridement (cm) - Width 2.8 -Post Debridement (cm) - Depth 0.1 -Total Square (Post) (cm) 7.56 -Area of Debridement (cm) - Length 2.7 -Area of Debridement (cm) - Width 2.8 -Total Square (Area) (cm) 7.56 -Tunneling No -Undermining/Tunneling No -Circular Undermining No -Wound/Ulcer Outcome Not Healed -Ulcer Cleansing Rinsed/ Irrigated with Saline -Foul Odor after Cleansing No -Bioengineered Tissue No -Bleeding Controlled with Pressure -Treatment Response Procedure Tolerated Well -Debridement - Subq, 20sq cm No #5 L Med -Time 14:16 -Correct Patient Yes -Correct Side, Site, Position Yes -Correct Procedure Yes -Procedure Performed Yes -Type of Procedure Debridement -Clinical Debridement Subcutaneous -Tissue Removed Subcutaneous -Post Debridement (cm) - Length 1.1 -Post Debridement (cm) - Width 2.5 -Post Debridement (cm) - Depth 0.1 -Total Square (Post) (cm) 2.75 -Area of Debridement (cm) - Length 1.1 -Area of Debridement (cm) - Width 2.5 -Total Square (Area) (cm) 2.75 -Tunneling No -Undermining/Tunneling No -Circular Undermining No -Wound/Ulcer Outcome Not Healed -Ulcer Cleansing Rinsed/ Irrigated with Saline -Foul Odor after Cleansing No -Bioengineered Tissue No -Bleeding Controlled with Pressure -Treatment Response Procedure Tolerated Well -Debridement - Subq, 20sq cm No #4 L Post LE -Time 14:16 -Correct Patient Yes -Correct Side, Site, Position Yes -Correct Procedure Yes -Procedure Performed Yes -Type of Procedure Debridement -Clinical Debridement Subcutaneous -Tissue Removed Subcutaneous -Post Debridement (cm) - Length 1.3 -Post Debridement (cm) - Width 2.4 -Post Debridement (cm) - Depth 0.1 -Total Square (Post) (cm) 3.12 -Area of Debridement (cm) - Length 1.3 -Area of Debridement (cm) - Width 2.4 -Total Square (Area) (cm) 3.12 -Tunneling No -Undermining/Tunneling No -Circular Undermining No -Wound/Ulcer Outcome Not Healed -Ulcer Cleansing Rinsed/ Irrigated with Saline -Foul Odor after Cleansing No -Bioengineered Tissue No -Bleeding Controlled with Pressure -Treatment Response Procedure Tolerated Well -Debridement - Subq, 1st 20sq cm No #3 R Post Lower -Time 14:16 -Correct Patient Yes -Correct Side, Site, Position Yes -Correct Procedure Yes -Procedure Performed Yes -Type of Procedure Debridement -Clinical Debridement Subcutaneous -Tissue Removed Subcutaneous -Post Debridement (cm) - Length 3.0 -Post Debridement (cm) - Width 0.5 -Post Debridement (cm) - Depth 0.1 -Total Square (Post) (cm) 1.50 -Area of Debridement (cm) - Length 3.0 -Area of Debridement (cm) - Width 0.5 -Total Square (Area) (cm) 1.50 -Tunneling No -Undermining/Tunneling No -Circular Undermining No -Wound/Ulcer Outcome Not Healed -Ulcer Cleansing Rinsed/ Irrigated with Saline -Foul Odor after Cleansing No -Bioengineered Tissue No -Bleeding Controlled with Pressure -Treatment Response Procedure Tolerated Well -Debridement - Subq, 1st 20sq cm Yes #2 R Calf -Time 14:16 -Correct Patient Yes -Correct Side, Site, Position Yes -Correct Procedure Yes -Procedure Performed Yes -Type of Procedure Debridement -Clinical Debridement Subcutaneous -Tissue Removed Subcutaneous -Post Debridement (cm) - Length 1.0 -Post Debridement (cm) - Width 1.6 -Post Debridement (cm) - Depth 0.1 -Total Square (Post) (cm) 1.60 -Area of Debridement (cm) - Length 1.0 -Area of Debridement (cm) - Width 1.6 -Total Square (Area) (cm) 1.60 -Tunneling No -Undermining/Tunneling No -Circular Undermining No -Wound/Ulcer Outcome Not Healed -Ulcer Cleansing Rinsed/ Irrigated with Saline -Foul Odor after Cleansing No -Bioengineered Tissue No -Bleeding Controlled with Pressure -Treatment Response Procedure Tolerated Well -Debridement - Subq, 1st 20sq cm No #1 RLE -Time 14:16 -Correct Patient Yes -Correct Side, Site, Position Yes -Correct Procedure Yes -Procedure Performed Yes -Type of Procedure Debridement -Clinical Debridement Subcutaneous -Tissue Removed Subcutaneous -Post Debridement (cm) - Length 8.5 -Post Debridement (cm) - Width 4.7 -Post Debridement (cm) - Depth 0.1 -Total Square (Post) (cm) 39.95 -Area of Debridement (cm) - Length 8.5 -Area of Debridement (cm) - Width 4.7 -Total Square (Area) (cm) 39.95 -Tunneling No -Undermining/Tunneling No -Circular Undermining No -Wound/Ulcer Outcome Not Healed -Ulcer Cleansing Rinsed/ Irrigated with Saline -Foul Odor after Cleansing No -Bioengineered Tissue No -Bleeding Controlled with Pressure -Treatment Response Procedure Tolerated Well -Debridement - Subq, 1st 20sq cm Yes -Debridement, SubQ, ea addt'l 20sq cm 2 or part thereof Pain Scale: 0-10 Numeric Is Patient Pain Free? Yes Yes WC - Nurse 3 - General Ulcer D/C NN Start: 06/10/23 13:25 Freq: Status: Active Protocol: Activity Type Activity Date Activity User E-sign Co-sign Detail Recorded Client Recorded Date Recorded By Document 06/10/23 14:58 KW [id number] 06/10/23 14:59 KW Document 06/13/23 12:21 KW [id number] 06/13/23 13:13 KW Document 06/13/23 13:14 KW [id number] 06/13/23 13:14 KW 06/10/23 06/13/23 06/13/23 14:58 12:21 13:14 [facility] Nurse 3 #6 L Lat LE -Ulcer Cleansing Rinsed/ Irrigated with Saline -Primary Dressing Applied Promogran Promogran -Primary Dressing Covered/Secured with Dry Gauze & Dry Gauze & Roll Gauze, Roll Gauze, Secured with Secured with Tape Tape -Promogran 1 1 #5 L Med -Ulcer Cleansing Rinsed/ Irrigated with Saline -Primary Dressing Covered/Secured with Dry Gauze & Roll Gauze, Secured with Tape #4 L Post LE -Ulcer Cleansing Rinsed/ Irrigated with Saline -Primary Dressing Applied Promogran -Primary Dressing Covered/Secured with Dry Gauze & Dry Gauze & Roll Gauze, Roll Gauze, Secured with Secured with Tape Tape -Promogran 1 #3 R Post Lower -Ulcer Cleansing Rinsed/ Irrigated with Saline -Primary Dressing Covered/Secured with Dry Gauze & Roll Gauze, Secured with Tape #2 R Calf -Ulcer Cleansing Rinsed/ Irrigated with Saline #1 RLE -Ulcer Cleansing Rinsed/ Irrigated with Saline BLE -Multi-Layered Wrap Application Multi-Layer Multi-Layer Comp - Bilat ($ Comp - Bilat ($ ) ) Vital Signs Temperature (97.8 F-99.1 F) 97.2 F L Temperature Source Temporal Pulse Rate (60-100) 57 L Pulse Location Monitor Respiratory Rate (12-18) 18 Respiratory rate source Observation Pulse Oximetry 91 Oxygen Delivery Method Nasal Cannula O2 L/MIN 4 Blood Pressure (90/60-120/80) 136/56 H Blood Pressure Mean 82 Source Monitor Position Sitting Blood Pressure Location Left Arm Pain Scale: 0-10 Numeric Is Patient Pain Free? Yes Yes Yes WC - Visit Discharge Discharge Condition Stable Stable Ambulatory Status Wheelchair Wheelchair Transportation Private Auto Private Auto Medication Reconcilliation completed & No No provided to patient/care provider Clinical Summary of Care Provided Yes Yes Additional Wound Wound debrided: Left lateral calf Laterality: Left Type of Debridement: Excisional debridement Anesthesia Used: 5% Lidocaine Gel Depth: Down to and including healthy tissue and in the subcutaneous layer Percentage of wound debrided: 100 Instrument Used: 5mm curette Tissue Removed: Bioburden, necrotic tissue, and pet hairs Severity: Fat Layer Exposed Amount of bleeding with debridement: Mild Bleeding Controlled with: Compression and gauze Patient tolerated procedure: Patient tolerated procedure well Additional Wound Wound debrided: Right medial surface Laterality: Right Type of Debridement: Excisional debridement Anesthesia Used: 5% Lidocaine Gel Depth: Down to and including healthy tissue and in the subcutaneous layer Percentage of wound debrided: 100 Instrument Used: 5mm curette Tissue Removed: Bioburden, necrotic tissue, pet hairs, and debris Severity: Fat Layer Exposed Bleeding Controlled with: Compression and gauze Patient tolerated procedure: Patient tolerated procedure well Additional Wound Wound debrided: Right posterior calf Laterality: Right Type of Debridement: Excisional debridement Anesthesia Used: 5% Lidocaine Gel Depth: Down to and including healthy tissue and in the subcutaneous layer Percentage of wound debrided: 100 Instrument Used: 5mm curette Tissue Removed: Bioburden, necrotic tissue, pet hairs, and debris Severity: Fat Layer Exposed Amount of bleeding with debridement: Mild Bleeding Controlled with: Compression and gauze Patient tolerated procedure: Patient tolerated procedure well Assessment/Plan Assessment/Plan (1) Non-pressure chronic ulcer of right lower leg with fat layer exposed: CODE(S): L97.912 - Non-pressure chronic ulcer of unspecified part of right lower leg with fat layer exposed (2) Non-pressure chronic ulcer of left lower leg with fat layer exposed: CODE(S): L97.922 - Non-pressure chronic ulcer of unspecified part of left lower leg with fat layer exposed (3) Edema of right lower leg: CODE(S): R60.0 - Localized edema (4) Edema of left lower extremity: CODE(S): R60.0 - Localized edema (5) Dependent edema: CODE(S): R60.9 - Edema, unspecified (6) Swelling of right lower extremity: CODE(S): M79.89 - Other specified soft tissue disorders (7) Swelling of left lower extremity: CODE(S): M79.89 - Other specified soft tissue disorders (8) Peripheral arterial occlusive disease: CODE(S): I77.9 - Disorder of arteries and arterioles, unspecified (9) Valvular heart disease: CODE(S): I38 - Endocarditis, valve unspecified (10) Presence of stent in coronary artery: CODE(S): Z95.5 - Presence of coronary angioplasty implant and graft (11) Bilateral carotid bruits: CODE(S): R09.89 - Other specified symptoms and signs involving the circulatory and respiratory systems (12) Nonrheumatic tricuspid valve regurgitation: CODE(S): I36.1 - Nonrheumatic tricuspid (valve) insufficiency (13) Non-rheumatic mitral regurgitation: CODE(S): I34.0 - Nonrheumatic mitral (valve) insufficiency (14) Depression: CODE(S): F32.9 - Major depressive disorder, single episode, unspecified (15) Type 2 diabetes mellitus: CODE(S): E11.9 - Type 2 diabetes mellitus without complications (16) Atherosclerotic heart disease of [place] coronary artery without angina pectoris: CODE(S): I25.10 - Atherosclerotic heart disease of [place] coronary artery without angina pectoris QUALIFIERS: [place] vs. transplanted heart: [place] heart Qualified Code(s): I25.10 - Atherosclerotic heart disease of [place] coronary artery without angina pectoris (17) Chronic systolic (congestive) heart failure: CODE(S): I50.22 - Chronic systolic (congestive) heart failure (18) Essential hypertension: CODE(S): I10 - Essential (primary) hypertension (19) Hyperlipidemia: CODE(S): E78.5 - Hyperlipidemia, unspecified (20) Morbid obesity: CODE(S): E66.01 - Morbid (severe) obesity due to excess calories (21) Poor circulation: CODE(S): R09.89 - Other specified symptoms and signs involving the circulatory and respiratory systems (22) Hypothyroidism: CODE(S): E03.9 - Hypothyroidism, unspecified (23) History of lung biopsy: CODE(S): Z98.890 - Other specified postprocedural states (24) COPD (chronic obstructive pulmonary disease): CODE(S): J44.9 - Chronic obstructive pulmonary disease, unspecified (25) Tobacco abuse: CODE(S): Z72.0 - Tobacco use (26) Tobacco abuse counseling: CODE(S): Z71.6 - Tobacco abuse counseling PLAN: Plan This is a 62-year-old morbidly obese diabetic female who presented with ulcerations in her lower extremities bilaterally. These had been present for at least 1 month, if not longer. These appeared to be related to chronic swelling and edema in the patient's lower extremities, related to chronic dependency, inactivity, and morbid obesity. The patient is limited in her activity due to her morbid obesity and cardiopulmonary disease. As result, she sits for long periods each day with her legs in a dependent position. She denies a history of lower extremity thrombophlebitis. Her ulcerations began as blisters, which subsequently ruptured and resulting in open ulcerations. The ulcerations have been debrided today. We are to continue the use of Promogran topically, which will be applied to each of the patient's lower extremity ulcerations. Compression is to be continued by means of a 3M 2 layer compression wrap, which will be changed with the Promogran atop each ulceration twice weekly. The patient has been encouraged to elevate her lower extremities is much as possible. Elevation is to be to heart level. This is to be accomplished during both sleeping and waking hours. Prolonged idle sitting has been discouraged. Weight loss has been recommended. Adequate nutrition has been advised. Optimization of the patient's glycemic control has also been recommended. The patient has recently undergone a noninvasive lower extremity arterial study on June 03, 2023, which revealed evidence of minimal arterial occlusive disease at ankle level on the right. 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 Arterial flow appears to be relatively normal at digital level bilaterally. The patient has recently also undergone recent laboratory studies on May 07, 2023, with results as follows: White blood count 7.8, hemoglobin 14.3, hematocrit 49.3, platelets 149,000, potassium 4.2, sodium 142, chloride 98, BUN 32, creatinine 1.36, glucose 127, calcium 8.8, total bilirubin 1.40, AST 26, ALT 24, alkaline phosphatase 194, triglycerides 91, cholesterol 90, LDL 39, VLDL 18, total protein 6.4, albumin 3.1. TSH was 5.31 the patient is to return in 1 week for reevaluation. Total time: 26 minutes
== END 2023-06-19 23:59 | disposition home or self-care (01) ==
LOC: WC 12:45
PROVIDERS: PCP Family Medicine; Referring Provider Family Medicine; Visit Provider Surgery
DX: E11.622 Type 2 diabetes mellitus with other skin ulcer (principal); E11.51 Type 2 diabetes mellitus with diabetic peripheral angiopathy without gangrene; L97.222 Non-pressure chronic ulcer of left calf with fat layer exposed; L97.212 Non-pressure chronic ulcer of right calf with fat layer exposed; I11.0 Hypertensive heart disease with heart failure; I50.22 Chronic systolic (congestive) heart failure; E11.42 Type 2 diabetes mellitus with diabetic polyneuropathy; E66.01 Morbid (severe) obesity due to excess calories; Z68.42 Body mass index [BMI] 45.0-49.9, adult; Z79.4 Long term (current) use of insulin; Z79.51 Long term (current) use of inhaled steroids; F17.200 Nicotine dependence, unspecified, uncomplicated; Z79.899 Other long term (current) drug therapy; R60.0 Localized edema
CPT/HCPCS: 11042; 11045; 29581; 99213; G0463